=== PATIENT | male | born 1960 | race American Indian/Alaskan Native ===

== ENCOUNTER 2021-12-22 20:54 | Emergency (ER) | payer OTHER ==
[2021-12-22 21:07] VITALS: BP 152/92
--- NOTE | 2021-12-22 22:49 | Emergency Department Report ---
ED General Adult HPI - General Chief complaint: Medical Clearance Stated complaint: MEDICAL CLERANCE Time Seen by Provider: 12/22/21 22:35 Source: patient, EMS Mode of arrival: Ambulatory Limitations: No Limitations - History of Present Illness Initial comments: Chief complaint: "I need a prescription." HPI: This is a 61-year-old male with history of hypertension, diabetes mellitus who presents with abnormal blood glucose reading. Mr. De Anda uses a sensor implanted in his left shoulder to continuously measure his glucose. His numbers range from 70-1 26 according to his report. He felt sweaty today. His blood glucose read low. He drank sugary drinks and took several glucose tablets. Monitor continue to read low. He called EMS. Accu-Chek per EMS 126 while his monitor continue to read low. He is currently symptom-free. He desires prescription for a new monitor. He lives in [facility]. He is a truck chauffeur. He is staying at a hotel in [place]. New medications include pioglitazone and lisinopril. He also takes Metformin. His PCP recently discontinued glipizide. -: This evening Severity scale (0 -10): 0 Consistency: now resolved Improves with: none Worsens with: none Associated Symptoms: denies other symptoms Treatments Prior to Arrival: other (EMS transport, glucose intake) ED Review of Systems ROS: Stated complaint: MEDICAL CLERANCE Other details as noted in HPI Constitutional: denies: fever, malaise Eyes: denies: as per HPI Respiratory: denies: cough, shortness of breath Cardiovascular: denies: chest pain Gastrointestinal: denies: abdominal pain, nausea, vomiting ED Past Medical Hx - Past Medical History Previous Medical History?: Yes Hx Hypertension: Yes Hx Diabetes: Yes - Social History Smoking Status: Never Smoker Substance Use Type: None ED Physical Exam - General Limitations: No Limitations General appearance: alert, in no apparent distress - Head Head exam: Present: atraumatic, normocephalic - Eye Eye exam: Present: normal appearance - ENT ENT exam: Present: mucous membranes moist - Neck Neck exam: Present: normal inspection, full ROM - Respiratory Respiratory exam: Absent: respiratory distress - Extremities Exam Extremities exam: Present: normal inspection - Neurological Exam Neurological exam: Present: alert, oriented X3 - Psychiatric Psychiatric exam: Present: normal affect, normal mood - Skin Skin exam: Present: warm, dry, intact, normal color ED Course Vital Signs 12/22/21 21:05 Temperature 98.6 F Pulse Rate 86 Respiratory 18 Rate Blood Pressure 152/92 O2 Sat by Pulse 99 Oximetry ED Medical Decision Making - Medical Decision Making Mr. De Anda presents with request for prescription for monitor. I encouraged him to call his PCP in order to arranged for replacement. Accu-Chek 163 in the emergency department did not correspond to patient's low reading on monitor. He has had a monitor for 1 year. The monitor has complete charge. Critical care attestation.: If time is entered above; I have spent that time in minutes in the direct care of this critically ill patient, excluding procedure time. ED Disposition Clinical Impression: Uses self-applied continuous glucose monitoring device, History of diabetes mellitus Disposition: HOME / SELF CARE / HOMELESS Is pt being admited?: No Does the pt Need Aspirin: No Condition: Stable Referrals: PRIMARY CARE, [Referring] - 3-5 Days
== END 2021-12-23 00:49 | disposition home or self-care (01) ==
LOC: ED 20:54
DX: E11.8 Type 2 diabetes mellitus with unspecified complications (principal)
CPT/HCPCS: 82962; 99283